=== PATIENT | female | born 1975 | race African-American/Black ===

== ENCOUNTER → 2020-01-30 | Outpatient (CLI) | payer OTHER ==
--- NOTE | 2020-01-30 12:25 | RAD ---
Left lower extremity venous doppler ultrasound History: Swelling of the left lower extremity Comparison: None Findings: Multiple grayscale, color, and duplex spectral analysis sonographic images were acquired of the left lower extremity veins to evaluate for the presence of DVT. There is normal phasicity. Normal compression, color-flow, and augmentation is demonstrated from the left common femoral to the popliteal veins. There is normal color flow of the proximal greater saphenous and profunda femoris veins. There is normal color flow of segments of the calf veins. There is nonspecific left groin lymph node, does not appear significantly enlarged in short axis dimension about 0.6 cm. Impression: 1. There is no evidence of deep venous thrombosis from the left common femoral to the popliteal veins. Electronically signed by: Yoni Hancock MD (01/30/2020 12:22 PM) [id number]
== END ==
LOC: US 10:50
PROVIDERS: ATTEND Family Medicine
DX: R22.42 Localized swelling, mass and lump, left lower limb (principal); M79.89 Other specified soft tissue disorders
CPT/HCPCS: 93971